=== PATIENT | female | born 1980 | race Caucasian/White ===

== ENCOUNTER → 2017-09-24 | Outpatient (CLI) | payer BC, OTHER ==
[~2017-09-24] MED LIST: CLIN150C17 PO; HYDR-756 PO; [UNRECOGNIZED DRUG - REMARK] PO
--- NOTE | 2017-09-24 15:03 | Diagnostic Imaging Report ---
INDICATION: Irregular menstrual bleeding. TECHNIQUE: Transabdominal and transvaginal pelvic sonography was performed. FINDINGS: The uterus measures 10.1 x 7.3 x 6.6 cm. The endometrium is 8 mm in thickness. There does appear to be a large fibroid in the left uterus measuring approximately 6.1 x 5.5 x 7.2 cm. This does exert some mass effect on the endometrium. The right ovary measures 2.1 x 2.2 x 1.7 cm and the left ovary measures 2.5 x 2.5 x 2.0 cm. There is blood flow to the ovaries. No adnexal mass or free fluid is seen. IMPRESSION: Large uterine fibroid exerting mass effect on the endometrium. No other significant abnormality is seen. Dictated by: Dictated on workstation # [id number]
== END ==
LOC: RAD 14:07
PROVIDERS: ATTEND Nurse Practitioner Family
DX: N92.6 Irregular menstruation, unspecified (principal); D25.9 Leiomyoma of uterus, unspecified
CPT/HCPCS: 76830; 76856

== ENCOUNTER 2017-10-29 12:04 | Outpatient (CLI) | payer BC ==
[~2017-10-29] VITALS: Ht 152.4 cm; Wt 74.8 kg
[2017-10-29 12:16] VITALS: BP 144/80
[2017-10-29 12:41] LABS: BASOPHILS % (AUTO) 0 % (0-10); EOSINOPHILS # (AUTO) 0.2 10^3/uL (0.0-0.3); EOSINOPHILS % (AUTO) 2 % (0-10); HEMATOCRIT 39 % (35-52); HEMOGLOBIN 12.8 G/DL (11.5-16.0); LYMPHOCYTES # (AUTO) 1.6 X 10^3 (1.0-4.0); LYMPHOCYTES % (AUTO) 18 % (12-44); MEAN CORPUSCULAR HEMOGLOBIN 33 PG (25-34); MEAN CORPUSCULAR HGB CONC 33 G/DL (32-36); MEAN CORPUSCULAR VOLUME 99 FL (80-99); MONOCYTES # (AUTO) 0.5 X 10^3 (0.0-1.0); MONOCYTES % (AUTO) 6 % (0-12); NEUTROPHILS # (AUTO) 6.6 X 10^3 (1.8-7.8); NEUTROPHILS % (AUTO) 74 % (42-75); PLATELET COUNT 259 10^3/uL (130-400); RED BLOOD COUNT 3.89 10^6/uL (4.35-5.85); RED CELL DISTRIBUTION WIDTH 11.9 % (10.0-14.5); WHITE BLOOD COUNT 8.9 10^3/uL (4.3-11.0)
[2017-10-31] MEDS ORDERED: HYDR-34 PO (10:23)
[2017-10-31] MEDS ORDERED: DOCU100C37 PO (10:23)
[2017-10-31] MEDS ORDERED: IBUP-1780 PO (10:23)
== END 2017-10-29 12:40 | disposition home or self-care (01) ==
LOC: PREOP 12:04
PROVIDERS: ATTEND Obstetrics & Gynecology
DX: Z01.812 Encounter for preprocedural laboratory examination (principal); Z11.2 Encounter for screening for other bacterial diseases; D25.9 Leiomyoma of uterus, unspecified
CPT/HCPCS: 36415; 84703; 85025; 87081